=== PATIENT | female | born 1975 | race Caucasian/White ===

== ENCOUNTER → 2023-08-08 12:15 | Outpatient (BNV) | payer OTHER, SELFPAY | PROVIDERS: Visit Provider Psychiatry & Neurology Psychiatry | DX: F33.2 Major depressive disorder, recurrent severe without psychotic features (principal); F43.10 Post-traumatic stress disorder, unspecified; F43.21 Adjustment disorder with depressed mood; Z63.4 Disappearance and death of family member; Z86.59 Personal history of other mental and behavioral disorders | CPT/HCPCS: 90792; 99213 ==

== ENCOUNTER 2023-08-21 11:00 | Outpatient (RCR) | payer OTHER, SELFPAY ==
[2023-07-31 11:41] VITALS: BP 102/68; PULSE 64; TEMP 36.9
[2023-07-31 11:44] VITALS: BMI 24.7
--- NOTE | 2023-07-31 12:50 | PC.ADMIT ---
Patient is a 48 year old female who was referred to [facility] by her PCP and her clinician d/t depression and anxiety sxs. Patient reports that a few weeks ago she had thoughts to overdose on her medications thus gave them to her to hold as a precaution. She is struggling with grief d/t the loss of her son secondary to an accidental overdose in February 2023. Patient reports her mental health sxs is affecting her work. She is on intermittent FMLA. She reports she can not concentrate. Stated she continues to work as she feels she has to get projects completed as there is no one else to complete however stated what usually takes her a few days to complete is now taking her several weeks. She was up until 2 am this morning trying to finish something for work. Patient reports that she is using ETOH to cope with how she is feeling. She reports that a few months prior to her son passing she was drinking a bottle of wine almost daily. She reports that she has cut down her use since then, reports her had voiced concerns over her use. Over the last month drinking 1-2 glasses of wine. Last use was 2 nights ago drinking one glass of wine. Denied any sxs of detox. Educated patient on ETOH use in relation to mental and physical health. Currently patient is alert and oriented x4. Calm and cooperative. Presented with depressed mood, tearful affect. Reports passive SI is always there however denied any plans or intent to kill herself. Reports thoughts to overdose on her medications a few weeks ago. Reports she gave her her medications to hold on to as a precaution. Her family is her protective factor, does not want to do that to her family. Medications reconciled with patient and patient's pharmacy. She reports she at times forgets to take her medications. We problem solved ways to help her remember to take her medications daily. Medication education provided. Patient reports she is interested in TMS once she completes the PHP program and she has already reached out to a clinic in [place]. Patient also given information about TMS verbal and written. [ End ]
--- NOTE | 2023-07-31 14:49 | HO.PHP ---
Client's case has been opened and reviewed in treatment team.
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
--- NOTE | 2023-08-06 13:55 | HO.PHP ---
[facility] staff member met with Gillian after the third group to follow up around placing a referral for OP therapy and med management. Gillian expressed that she would like to further explore options and speak to an [facility]. [facility] staff member was receptive and informed her that if she would like help with placing a referral, she will help do so. Gillian was in agreement. Gillian voiced that she is feeling sad today, in which she presented as depressed and tearful. Gillian talked about the challenges she continues to face around the loss of her son and the continued struggles with grief. 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 [facility] staff member was receptive and voiced that if she would like to participate in any other additional grief groups, to let her know so she can provide her with those resources. Gillian appeared interested and stated she would keep the clinician informed. Gillian was talking about how she continues to utilize her son in the present tense opposed to past tense because this has still been challenging. Gillian expressed the guilt and blame that she holds against herself on a daily. [facility] staff member empathized with Gillian and was actively listening to her. [facility] staff member assessed safety prior to Gillian attending the last group of the day. Gillian expressed no concerns around safety and informed the clinician that she will see her tomorrow. PHP staff member was receptive.
--- NOTE | 2023-08-08 14:07 | HO.PHP ---
[facility] staff followed up Gillian around how she is doing. Gillian shared her struggles with loss and noted that this weekend she is going to work on taking down her son's photos and place them in an album so they don't get ruined. Gillian also expressed that she would like to look into EMDR opposed to the Ketamine. PHP staff member was receptive and provided her with resources around who she can contact. Gillian also talked about her friends that she saw and how she needs to continue to work on not isolating herself. [facility] staff member provided Gillian with support, in which Gillian appeared receptive to.
--- NOTE | 2023-08-08 22:41 | P.PNPSP_ITS ---
Subjective Subjective Date of Service: 08/08/23 Reason For Visit: MDD Interim History: I've been a lot more down Patient continues with depression, low mood, apathy, anxious despair, constantly ruminating. She takes Adderall XR 20 mg, says it was a little helpful when she was first started on it but does not find it helpful anymore. She reports no difference on days she takes it vs days she doesn't take it. Denies any adverse effects. I'm just having a hard time particularly with focusing on anything. She can pay attention for only short amounts of time, but her mind frequently returns to her grief. She describes existing as a very difficult and painful experience. But she continues to cite protective factors and is worried for her family as they are struggling too. She is trying to be there for everyone but says it is difficult to act normal. Reports often labile, easily tearful, emotional incontinence further exacerbating her anxiety, frustration. Sleep comes and goes SHe has been struggling to get up, from tireness but mostly just lacking motivation and the will to get up. She has been taking 200 mg of the trazodone so is able to fall asleep easily and stay asleep. Zoloft was increased from 150 to 200 mg in Mar-Apr. SHe does not feel it has been beneficial. Please help me, I'll take anything to feel better - she pleads for a medication change to help with her depression. We may consider switching to a different antidepressant next week, given patient has been years on ZOloft and feels it has lost its efficacy. Medication Compliance: Yes Side effects from medications: No Attending Groups: Yes Mental Status Exam Mental Status Exam Narrative: Alert, oriented, in no acute distress. Calm, cooperative, engaged. No psychomotor agitation or neurovegetative retardation. Eye contact maintained. Mood depressed, affect sad, labile. Speech normal. Thought process linear, coherent. Thought content related to stressors, transient hopelessness and passive SI, denies any plan or intent or HI. No paranoia or delusional content elicited. No evidence of psychosis. Insight and judgment impaired. Diagnostics Vital Signs (24Hr): BMI result Body Mass Index 24.7 Assessment & Plan Assessment & Plan (1) Major depressive disorder, recurrent severe without psychotic features: Status: Acute Code(s): F33.2 - Major depressive disorder, recurrent severe without psychotic features (2) Post traumatic stress disorder (PTSD): Status: Acute Code(s): F43.10 - Post-traumatic stress disorder, unspecified (3) Grief at loss of child: Status: Acute Code(s): F43.21 - Adjustment disorder with depressed mood; Z63.4 - Disappearance and of family member Plan start aripiprazole 2 mg daily as augmentation for depression continue sertraline 200 mg for now continue Adderall XR 20 mg qAM continue trazodone 100-200 mg qd Patient educated on: diagnosis and medication risk/benefits Informed Consent: understands Reason for contiued partial hosp. stay Substantial Risk for: harm to self, inability to function and med/psych decompensation Certification I certify that partial hospital treatment is medically necessary due to the symptoms and problems resulting from the patient's mental illness and the failure to treat the patient at the partial hospital level of care would likely result in the patient requiring inpatient psychiatric care which could not be p revented at a less intensive level of care. Total time managing care of this patient today __30__ minutes. Discharge Plan Discharge Attending provider: Beckie Wilcox Medications: New aripiprazole 2 mg tablet 2 mg PO BEDTIME Qty: 15 0RF No Action sertraline 100 mg tablet 200 mg PO DAILY Patient Comments: Patient stated she takes 2 tabs daily. dextroamphetamine-amphetamine 20 mg capsule,extended release 24hr 1 cap PO QAM trazodone 100 mg tablet 100 - 200 mg PO BEDTIME estradiol 0.025 mg/24 hr patch semiweekly 1 patch transdermal DIRECTED
--- NOTE | 2023-08-11 15:00 | HO.PHP ---
[facility] staff member followed up with Gillian to gather information around placing a referral for OP therapy and a med provider. Gillian expressed that she may have an individual who will be taking her on for therapy and will be speaking with her later today for clarification. PHP staff explored what she is doing for a med provider. Gillian voiced she receiving resources from group members around providers through [facility]. PHP staff noted that she would like to assist with a referral. Gillian was receptive and agreed to [facility] for med management. [facility] staff member also provided Gillian with grief groups. Gillian was receptive.
--- NOTE | 2023-08-12 22:26 | HO.PHPPROGNO ---
Subjective Subjective Date of Service: 08/12/23 Reason For Visit: MDD Interim History: Patient reports weekend was ok . She says she realizes she had been isolating more than she had meant to so she made efforts to stya busy and get out this weekend. Spending limited amounts of time each time with family and/or friends. Still difficult to maintain endorse social interactions for extended amounts of time. Still experiencing intermittent lability, especially when talking more than superficially. She did cancel plans on Friday because just was feeling too overwhelmed by the thought of meeting up with others. Although she is noted to be less labile/tearful today. Transient hopelessness improving, however she denies any recent thoughts of giving up on life. Tolerating ABilify 2 mg daily at bedtime around 9pm, denies any adverse effects. She is agreeable to further titrate the ABilify hoping to feel more emotionally regulated, not so easily tearful. Denies any issues with anger or irritability or manic symptoms, just feeling sad and weepy. Sleep is still broken. Does not feel the Abilify is interfering but says she will keep an eye on this as we increase. She had previously felt ZOloft was working prior to loss of her son (before Feb 2023), though she says was working better for mood>anxiety, she didnt have any depressive sx prior to Feb although did have situational anxiety (somatic>=cogntiive) had been at 100 mg. She notes the ZOloft was further increase to 150 and 200 mg since and says she has not appreicated any considerable improvement or change. She has previously been on Wellbutrin, Prozac, Celexa, Lexapro, Effexor of which ZOloft had historically worked best. She has not been on duloxetine or any other medications in the past. We consider whether it would be worth changing over to a new antidepressant or whether this would even be beneficial given acute grief/bereavement. Perhaps a better strategy might be to offer PRN clonazepam to limit to 3 times a week to help with reintegrating socially and more effectively improve connections, engagement with activities of life to help process grief. Having a lot of anxiety, especially as she is starting to think more about returning to work, noting she has no motivation or concentration. SHe feels she would be more motivated if her focus was not so poor, just discouraging level of cognitive dysfunction. SHe takes Adderall XR 20 mg and says there is no difference in cognition or function on days she takes the stimulant vs not. Denies AE. She reportedly did better on Vyvanse in past but insurance wouldnt cover this any longer. We discuss starting guanfacine for anxiety, cognition, may also consider switching from ADderall to modafinil or armodafinil to target cognition and as augmentation for depression. ROS was negative on review. Alcohol use on average is occasional 1-2 units of wine about 2-3 times a week. She has been drinking less often since being in the program this month, limiting self to 1 glass a few times a week because she had been drinking more regularly in the past couple of months with her son passing, had been at a 2 or 3 glasses of wine on most days last month. She denies any issues with binge or heavy/concerning use. Medication Compliance: Yes Side effects from medications: No Attending Groups: Yes Review of Systems Acute medical concerns: No Mental Status Exam Mental Status Exam Narrative: Alert, oriented, in no acute distress. Calm, cooperative, engaged. Eye contact maintained. Mood sad, affect sad, less labile. Speech normal. Thought process linear, coherent. Thought content related to stressors, transient hopelessness and passive SI, denies any plan or intent or HI. No paranoia or delusional content elicited. No evidence of psychosis. Insight and judgment impaired. Diagnostics Vital Signs (24Hr): BMI result Body Mass Index 24.7 Assessment & Plan Assessment & Plan (1) Major depressive disorder, recurrent severe without psychotic features: Status: Acute Code(s): F33.2 - Major depressive disorder, recurrent severe without psychotic features (2) Post traumatic stress disorder (PTSD): Status: Acute Code(s): F43.10 - Post-traumatic stress disorder, unspecified (3) Grief at loss of child: Status: Acute Code(s): F43.21 - Adjustment disorder with depressed mood; Z63.4 - Disappearance and of family member (4) Attention and concentration deficit: Status: Acute Code(s): R41.840 - Attention and concentration deficit Plan will increase Abilify to 5 mg qhs start guanfacine ER 1 mg qPM in evening (depending on ?sedation, may consider adding on AM w Adderall) we discussed trialing modafinil, given lack of efficacy of Adderall and inconsistent invrnetory/stock) start clonazepam 0.5 mg 1-2 x/day to target anxiety, sleep (perhaps affording patient some relief to better engage in personal and social ADLs) will plan to lower sertraline to 150 mg qd (given patient has not further improved since 100 mg, will maintain at 150 mg continue trazodone at 100 mg qhs PRN (trying to limit from 200 mg She is scheduled to see her new OP provider on Friday, Consuelo Barcenas. continue to monitor Patient educated on: diagnosis and medication risk/benefits Informed Consent: understands Reason for contiued partial hosp. stay Substantial Risk for: inability to function, rapid decompensation and med/psych decompensation Certification I certify that partial hospital treatment is medically necessary due to the symptoms and problems resulting from the patient's mental illness and the failure to treat the patient at the partial hospital level of care would likely result in the patient requiring inpatient psychiatric care which could not be prevented at a less intensive level of care. Total time managing care of this patient today _30___ minutes. Discharge Plan Discharge Attending provider: Beckie Wilcox Medications: New aripiprazole 2 mg tablet 2 mg PO BEDTIME Qty: 15 0RF aripiprazole 5 mg tablet 5 mg PO BEDTIME Qty: 30 0RF guanfacine 1 mg tablet extended release 24 hr 1 mg PO DAILY Qty: 30 0RF clonazepam 0.5 mg tablet 0.5 mg PO BID PRN (Reason: anxiety, sleep) Qty: 14 0RF Continued modafinil 100 mg tablet 100 mg PO QAM Qty: 20 0RF No Action sertraline 100 mg tablet 200 mg PO DAILY Patient Comments: Patient stated she takes 2 tabs daily. dextroamphetamine-amphetamine 20 mg capsule,extended release 24hr 1 cap PO QAM trazodone 100 mg tablet 100 - 200 mg PO BEDTIME estradiol 0.025 mg/24 hr patch semiweekly 1 patch transdermal DIRECTED
--- NOTE | 2023-08-14 15:50 | HO.PHPPROGNO ---
Subjective Subjective Date of Service: 08/14/23 Reason For Visit: MDD Interim History: Patient has been taking 5 mg of Abilify. She is able to fall asleep within 2 hours now, which is an imprvement since adding the Abilify to the nightly trazodone, however she is still waking in the night multiple times. it can be disorienting. It is especially difficult to stay away from darker thoughts, when she wakes at night. The house is quiet, she soemtimes feels panicked, heart racing . There are some trauma-related dreams also disrupting sleep. She notes her energy is still low, and she has still no motivation, and says morning are difficult and takes a lot of effort to make herself get out of bed. She makes it to the program, but other days she will just stay in bed until midday. Her worries for her. SHe has difficulty being intimate or tolerating being around people. She feels there has been modest improvements since starting on the ABilify. Denies any adverse effects. She was able to manage working on a chore (laundry) but will get distracted and not complete tasks, or just lose the will to finish. She is still experiencing anxiety having to go into town. Yesterday she didn't want to even go outside, and feels an urge to isolate. Is finding she must push herself to go run an errand and not cry and kind of hold it together for a few hours She feels this is an improvement with Abilify, before she couldn't be around people without losing control of her emotions. She is tolerating some short amounts of time feeling a little more together however social interactions, other than brief superificial interactions are very provoking, and she finds it still difficult to not just get weepy and cry. She is also feeling very pessismistic about returning to work. She notes they had cut down her many projects to just one project to work on (prior to her [employer]) and she was not even able to manage this. She does not feel the Adderall is helpfing at all and can't see how she will be able to function at a job, and worries at this point she will likely not be able to keep the job like this. 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 She usually enjoys the time, but hard to stay on top of her, feels it is more demanding than she can manage. She worries about forgetting things, losing track of her time. She is finding her efforts do not yield much enjoyment, and says she wishes she could just concentrate enough to distract herself from feeling low. Moments where existing is very painful and there's no escape from this. Ruminations on that day persist,, seeing her son's body, and feeling haunted by regrets. On a positive note she is starting to open up and share that she is experiencing flashbacks and reoccurrances from that day. She relays being very ruminative, and questioning her purpose in life, but says she is not having any thoughts of suicide. She tries to keep her family's needs in mind, but it has been hard to redirect her thoughts and stay focused on more pressing issues. Medication Compliance: Yes Side effects from medications: No Attending Groups: Yes Review of Systems Acute medical concerns: No Mental Status Exam Mental Status Exam Narrative: Alert, oriented, in no acute distress. Calm, cooperative, engaged. Eye contact maintained. Mood sad, affect sad, labile. Speech normal. Thought process linear, coherent, ruminative. Thought content related to stressors, transient hopelessness and passive SI, denies any plan or intent or HI. No paranoia or delusional content elicited. No evidence of psychosis. Insight and judgment impaired. Diagnostics Vital Signs (24Hr): BMI result Body Mass Index 24.7 Assessment & Plan Assessment & Plan (1) Major depressive disorder, recurrent severe without psychotic features: Status: Acute Code(s): F33.2 - Major depressive disorder, recurrent severe without psychotic features (2) Post traumatic stress disorder (PTSD): Status: Acute Code(s): F43.10 - Post-traumatic stress disorder, unspecified (3) Attention and concentration deficit: Status: Acute Code(s): R41.840 - Attention and concentration deficit Plan increase Abilify to 7 mg/d - start Abilify 2 mg qAM and cont Abilify 5 mg qhs (if qhs continue sertraline 150 mg qd hold Adderall XR 20 (ineffective) Vyvanse had been helpful for her in the past, however reportedly her insurance will not cover Vyvanse start modafinil 100 mg qAM (was unavailable at her pharmacy, but I called and located another pharmacy which had it in stock and 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 stay Substantial Risk for: inability to function, rapid decompensation and med/psych decompensation Certification I certify that partial hospital treatment is medically necessary due to the symptoms and problems resulting from the patient's mental illness and the failure to treat the patient at the partial hospital level of care would likely result in the patient requiring inpatient psychiatric care which could not be prevented at a less intensive level of care. Total time managing care of this patient today __30__ minutes. Discharge Plan Discharge Attending provider: Beckie Wilcox Medications: New aripiprazole 2 mg tablet 2 mg PO BEDTIME Qty: 15 0RF aripiprazole 5 mg tablet 5 mg PO BEDTIME Qty: 30 0RF guanfacine 1 mg tablet extended release 24 hr 1 mg PO DAILY Qty: 30 0RF clonazepam 0.5 mg tablet 0.5 mg PO BID PRN (Reason: anxiety, sleep) Qty: 14 0RF Continued modafinil 100 mg tablet 100 mg PO QAM Qty: 30 0RF No Action sertraline 100 mg tablet 200 mg PO DAILY Patient Comments: Patient stated she takes 2 tabs daily. dextroamphetamine-amphetamine 20 mg capsule,extended release 24hr 1 cap PO QAM trazodone 100 mg tablet 100 - 200 mg PO BEDTIME estradiol 0.025 mg/24 hr patch semiweekly 1 patch transdermal DIRECTED Stand Alone Forms: Patient Portal Discharge page
--- NOTE | 2023-08-18 21:13 | HO.PHPPROGNO ---
Subjective Subjective Date of Service: 08/18/23 Reason For Visit: MDD Interim History: Patient reports that she has energy and feels different . Been getting up earlier the past few days, 10am, 9 am.. Not sleeping until noon anymore. Energy has improved. She is taking the modafinil at 7am. Updates on activities in the past few days, helping her stepdaughter who is a new mom and has been struggling herself. She doesn't notice any significant improvements in cognition but does notice she is starting to catch herself when her thoughts are drifting and is able to pull myself back and is constantly redirecting herself, but is an improvement from being stuck connstantly.. She would like to increase the dose of modafinil to see if this is more effective. She reports some modest improvement in emotional control but still she had a couple of instances becoming tearful during conversations with others. She is frustrated by these lapses in emotional regulation. We discuss some of the triggers, noting that the interaction she details (the person had just suffered the lost their nephew) was more personal and touched on grief and loss, that perhaps not unexpectedly she may continue to emote sadness talking about her losing her son for some time. She did not relay any instances where she became emotional in more casual conversations. She denies any SI. She would like to increase the dose of ABilify to see if this helps further. Medication Compliance: Yes Side effects from medications: No Attending Groups: Yes Review of Systems Acute medical concerns: No Mental Status Exam Mental Status Exam Narrative: Alert, oriented, in no acute distress. Calm, cooperative, engaged. Eye contact maintained. Mood sad, affect subdued, less lability, no tearfulness noted today. Speech normal. Thought process, linear, coherent, less ruminative. Thought content related to stressors, +bereavement, more future-oriented, denies SI/ plan or intent or HI. No paranoia or delusional content elicited. No evidence of psychosis. Insight and judgment fair-good. Diagnostics Vital Signs (24Hr): BMI result Body Mass Index 24.7 Assessment & Plan Assessment & Plan (1) Major depressive disorder, recurrent severe without psychotic features: Status: Acute Code(s): F33.2 - Major depressive disorder, recurrent severe without psychotic features (2) Post traumatic stress disorder (PTSD): Status: Acute Code(s): F43.10 - Post-traumatic stress disorder, unspecified (3) Attention and concentration deficit: Status: Acute Code(s): R41.840 - Attention and concentration deficit (4) Grief at loss of child: Status: Acute Code(s): F43.21 - Adjustment disorder with depressed mood; Z63.4 - Disappearance and of family member Plan increase Abilify to 2-5 mg qAM continue Abilify 5 mg qhs may increase modafinil to 150 mg qAM (or 200 mg if optimized) continue guanfacine ER 1 mg qd continue sertraline 150 mg qd continue clonazepam 0.5 mg 1-2 x/day to target anxiety, sleep (perhaps affording patient some relief to better engage in personal and social ADLs) will lower dose of trazodone to 50 mg tablet to offer more flexbility, may take 75-150 mg qhs PRN holding Adderall XR 20 while trialing modafinil continue to monitor Patient educated on: diagnosis and medication risk/benefits Informed Consent: understands Reason for contiued partial hosp. stay Substantial Risk for: inability to function and med/psych decompensation Certification I certify that partial hospital treatment is medically necessary due to the symptoms and problems resulting from the patient's mental illness and the failure to treat the patient at the partial hospital level of care would likely result in the patient requiring inpatient psychiatric care which could not be prevented at a less intensive level of care. Total time managing care of this patient today __30__ minutes. Discharge Plan Discharge Attending provider: Beckie Wilcox Medications: New aripiprazole 2 mg tablet 2 mg PO BEDTIME Qty: 15 0RF aripiprazole 5 mg tablet 5 mg PO BEDTIME Qty: 30 0RF guanfacine 1 mg tablet extended release 24 hr 1 mg PO DAILY Qty: 30 0RF clonazepam 0.5 mg tablet 0.5 mg PO BID PRN (Reason: anxiety, sleep) Qty: 14 0RF trazodone 50 mg tablet 100 - 150 mg PO BEDTIME PRN (Reason: sleep) Qty: 30 0RF Continued modafinil 100 mg tablet 100 mg PO QAM Qty: 30 0RF No Action sertraline 100 mg tablet 200 mg PO DAILY Patient Comments: Patient stated she takes 2 tabs daily. dextroamphetamine-amphetamine 20 mg capsule,extended release 24hr 1 cap PO QAM trazodone 100 mg tablet 100 - 200 mg PO BEDTIME estradiol 0.025 mg/24 hr patch semiweekly 1 patch transdermal DIRECTED Stand Alone Forms: Patient Portal Discharge page Telehealth Telehealth Location of provider rendering services: other (private office) Location of patient: other ([facility]) Patient Identification confirmed using: Name, : Yes Telehealth method: video Patient verbally consented to treatment: Yes
== END 2023-08-21 23:59 | disposition home or self-care (01) ==
LOC: HO.PHPA 11:00
PROVIDERS: Visit Provider Psychiatry & Neurology Psychiatry
DX: F33.2 Major depressive disorder, recurrent severe without psychotic features (principal); F43.10 Post-traumatic stress disorder, unspecified; F43.21 Adjustment disorder with depressed mood; R41.840 Attention and concentration deficit; Z63.4 Disappearance and death of family member; Z79.899 Other long term (current) drug therapy
CPT/HCPCS: 90791; 90853